=== PATIENT | female | born 1965 | race Caucasian/White ===

== ENCOUNTER 2024-07-07 17:34 | Inpatient (IN) | payer OTHER, SELFPAY ==
[2024-07-07] VITALS (20 sets, daily range): BP systolic 40–127; BP diastolic 48–82; BMI 19.9
[2024-07-07] MEDS: NSS 1000 IV ×2 (11:28→17:44)
[2024-07-07] MEDS: TORADOL 15 MG IV (11:28)
[2024-07-07 11:34] LABS: % Basophils 0.3 % (0-2); % Immature Granulocytes 0.5 % (0-0.5); % Lymphocytes 6.3 % (20.5-51.1); % Monocytes 10.1 % (1.7-9.3); % Neutrophils 82.8 % (42.2-75.2); Absolute Basophils 0.1 10^3/uL (0-0.2); Absolute Immature Granulocytes 0.1 10^3/uL (0-0.05); Absolute Lymphocytes 1.1 10^3/uL (1.2-3.4); Absolute Monocytes 1.8 10^3/uL (0.1-0.6); Absolute Neutrophils 14.7 10^3/uL (1.4-6.5); Hemoglobin 12.5 g/dL (12.0-16.0); Mean Corp Hgb Conc. 35.7 g/dL (33.0-37.0); Mean Corpuscular Hgb 31.2 pg (27.0-31.0); Mean Corpuscular Volume 87.3 fL (81.0-99.0); Mean Platelet Volume 9.9 fL (7.4-10.4); Nucleated Red Blood Cells % 0 %; Platelet Count 173 10^3/uL (130-400); Red Blood Cell Count 4.01 10^6/uL (4.20-5.40); Red Cell Dist. Width 12.8 % (11.5-14.5); White Blood Cell Count 17.7 10^3/uL (4.8-10.8)
[2024-07-07 11:52] LABS: ALT (SGPT) 16 U/L (0-35); AST (SGOT) 18 U/L (14-36); Albumin 4.1 g/dl (3.5-5.0); Alkaline Phosphatase 68 U/L (38-126); Blood Urea Nitrogen 8 mg/dl (7-17); Calcium 9.4 mg/dl (8.4-10.2); Carbon Dioxide 24 mmol/L (22-30); Chloride 102 mmol/L (98-107); Estimated Creatinine Clearance 89 ml/min; Glucose 109 mg/dl (70-99); Lipase 58 U/L (23-300); Magnesium 2.2 mg/dl (1.6-2.3); Potassium 3.8 mmol/L (3.5-5.1); Sodium 135 mmol/L (135-145); Total Protein 6.4 g/dl (6.3-8.2); eGFR > 60.00
[2024-07-07] MEDS: OFIRMEV 100 IV (12:59)
[2024-07-07] MEDS: ROCEPHIN 2000 MG IV (14:34)
[2024-07-07] MEDS: FLAGYL 500 MG 100 IV ×2 (14:34→20:55)
--- NOTE | 2024-07-07 14:49 | ED.GENMED ---
History of Present Illness
General
Chief Complaint: Abdominal Symptoms
Time Seen by Provider: 07/07/24 11:00
History of Present Illness
History of Present Illness:
59-year-old female with history of breast cancer status post bilateral mastectomy presents the emergency department for evaluation of severe lower abdominal pain for the past 48 hours. Began with sudden onset of nausea and vomiting, pain is
gradually worsened since that time. No fevers chills or sweats. No prior abdominal surgical history. No lower urinary tract voiding symptoms
Past History
Past History
ED Past Medical History: Cancer (breast)
ED Past Surgical History: None
Social History
Tobacco: Non-smoker
Alcohol: None
Drug: None
Living: with family
Employment: Employed
Family History
Family History: Other (Noncontributory)
Review of Systems
Review of Systems
Allergies reviewed?: Yes
All Other Systems: ROS reviewed and negative except as documented in HPI and ROS
Phy Exam
Physical Exam
Physical Exam:
GEN: Appears ill and uncomfortable
HEENT: Oral mucosa moist, no scleral icterus
Cardiac: Tachycardic, regular
Lung: No respiratory distress, no tachypnea
Abdomen: Marked tenderness to palpation of right lower quadrant with localized peritoneal signs, positive rebound, no rigidity
MSK: No gross deformity or injuries
Skin: Good color, no pallor or jaundice, no rashes
Neuro: AO x3, moves all extremities freely
Psych: Calm, cooperative
Course
Orders/Labs/Results
Orders:
Orders
07/07/24 11:16
CT Abd/Pel (IV only)-DH only Urgent
Comment:
Reason For Exam: RLQ pain, vomiting
0.9% Sodium Chloride 1000 ml [Nss] 1,000 ml IV BOLUS
Ketorolac [Toradol] 15 mg IV NOW STA
07/07/24 11:18
Complete Blood Count/With Diff Urgent
Comprehensive Metabolic Panel Urgent
Lipase Urgent
Magnesium Urgent
07/07/24 12:54
Acetaminophen 1000MG/100Ml [Ofirmev] 1,000 mg in 100 ml IV ONCE
Acetaminophen IV Indication:: ED Narcotic Naive Pt-ONCE
07/07/24 14:25
CefTRIAXone [Rocephin] 2,000 mg IV NOW STA
MetroNIDAZOLE 500 MG/100 ML [Flagyl 500 mg] 100 ml IV NOW
07/07/24 14:32
Sterile Water [Sterile Water For Injection] 20 ml .ROUTE .STK-MED
07/07/24 14:46
Urinalysis Reflex To Culture Urgent
Date Specimen was Collected: 07/07/24
Time Specimen was Collected: 14:43
Urine Microscopic Reflex Cult Urgent
Abnormal Lab Results
07/07/24 07/07/24
11:18 14:46
WBC 17.7 H 10^3/uL
(4.8-10.8)
RBC 4.01 L 10^6/uL
(4.20-5.40)
Hct 35.0 L %
(37.0-47.0)
MCH 31.2 H pg
(27.0-31.0)
Abs Immat Gran (auto) 0.1 H 10^3/uL
(0-0.05)
Absolute Neuts (auto) 14.7 H 10^3/uL
(1.4-6.5)
Absolute Lymphs (auto) 1.1 L 10^3/uL
(1.2-3.4)
Absolute Monos (auto) 1.8 H 10^3/uL
(0.1-0.6)
Neutrophils % 82.8 H %
(42.2-75.2)
Lymphocytes % 6.3 L %
(20.5-51.1)
Monocytes % 10.1 H %
(1.7-9.3)
Glucose 109 H mg/dl
(70-99)
Urine Ketones 3+ A
(Negative)
Ur Occult Blood Reflex 4+ A
(Negative)
Urine RBC 3-6 A /HPF
(0-2)
Urine Bacteria (Reflex) Few A
(Negative)
Urine Albumin (Reflex) 2+ A
(Neg - Trace)
07/07/24 11:18
07/07/24 11:18
Vital Signs
Initial and Last Documented VS:
Initial Vital Signs
Temp Pulse Resp BP Pulse Ox
98.5 F 94 16 122/82 100
07/07/24 09:19 07/07/24 09:19 07/07/24 09:19 07/07/24 09:19 07/07/24 09:19
Last Documented Vital Signs
Temp Pulse Resp BP Pulse Ox
98.5 F 85 16 102/64 96
07/07/24 09:19 07/07/24 14:46 07/07/24 09:19 07/07/24 14:30 07/07/24 14:46
MDM/Problems Addressed
MDM/Problems Addressed:
Imaging reveals findings concerning for early perforation of the appendix. Communicated findings with general surgery who will take the patient to the operating room for intervention today.
*Critical Care Note
Total Time (30-74mins, 75-104mins- exclusive of procedures): 30 minutes
comment:
Critical care time: 30 minutes
Critical care time was exclusive of: Separately billable procedures, treating other patients, and teaching time
Critical care was necessary to treat or prevent imminent or life-threatening deterioration of the following conditions: Acute appendicitis/peritonitis
Critical care time spent personally by me on the following activities:
[x] Review of old charts
[x] Obtaining history from patient or surrogate
[x] Ordering and review of the laboratory studies
[x] Ordering and review of radiographic studies
[x] Ordering and performing treatments and interventions
[x] Patient patient's response to treatment
[x] Development of treatment plan with patient or surrogate
Update Note
Update Note:
1430: Reviewed imaging findings with radiology, Jasmeet connect message sent to general surgery, at this time I am concerned about the patient's peritoneal exam and feel as though she may require urgent operative intervention. Broad-spectrum IV
antibiotics ordered
ED Attending Note
-
Portions of this chart may have been created with voice recognition software.� Occasional wrong word or��sound alike� substitutions may have occurred due to the inherent limitations of voice recognition software.
Discharge Plan
Departure
Patient Disposition: Admit
Date of Disposition: 07/07/24
Time of Disposition: 14:49
Admit to: Med/Surg
Presentation/result/management discussed w/ accepting MD/DO: General Surgery
Discharge Problem:
Acute appendicitis
Prescriptions:
No Action
fexofenadine 180 mg Tablet
90 mg PO DAILY
ibuprofen 200 mg Tablet
400 mg PO DAILYPRN PRN (Reason: mild pain)
zolpidem 5 mg Tablet
5 mg PO HS
magnesium oxide 400 mg magnesium Tablet
800 mg PO HS
Referrals:
Markie Kyle DO [Family Provider] -
Interventions
Interventions:
*Risk Screen - Suicide Last Done: 07/07/24 12:11
*General Assessment Last Done: 07/07/24 11:32
*Neglect/Abuse Screening Last Done: 07/07/24 12:11
*ED- Fall Risk Assessment Last Done: 07/07/24 11:32
*ED COVID-19 Vaccine History Last Done: 07/07/24 11:32
VA-Vnuwxu-Lnfbsfxvna Assessment Last Done: 07/07/24 11:33
Discharge Date and Time
Print Language: MOLDOVAN
[2024-07-07 15:05] LABS: Urine Albumin 2+ (Neg - Trace); Urine Bilirubin Negative (Negative); Urine Character Clear (Clear); Urine Color Yellow; Urine Glucose Negative (Negative); Urine Ketone 3+ (Negative); Urine Leukocyte Negative (Negative); Urine Nitrite Negative (Negative); Urine Occult Blood 4+ (Negative); Urine Urobilinogen Negative (Neg - 1+)
[2024-07-07 15:15] LABS: Urine Bacteria Few (Negative); Urine White Cell 0-2 /HPF (0-5)
--- NOTE | 2024-07-07 15:15 | HPS.HSE ---
Addendum entered and electronically signed by Michael Hahn MD 07/07/24 15:47:
Patient seen and examined with surgical ELECTRICAL [employer]OR. Agree with documented H&P.
HPI: 59-year-old female presenting with acute onset of nausea vomiting abdominal pain for a bit over 48 hours now. No similar episodes previously. Her pain was a bit more generalized initially but now localizing to the right lower quadrant. Worse
with any movement. She is continued with anorexia and nausea. Some dry heaves as well. Small bowel movement today but otherwise bowels have been less than typically since symptoms started. Mild distention/bloating.
PMH: History of breast cancer status post mastectomy. No past abdominal surgical history. Denies any significant active medical history.
AFVSS
NAD AAOx3 but acutely ill-appearing and uncomfortable
ABD: Soft, tenderness palpation with voluntary guarding and rebound in the right lower quadrant
CT imaging with distended appendix periappendiceal inflammatory changes multiple fecaliths throughout the lumen. No well-organized abscess.
Assessment: 59-year-old female with acute appendicitis.
Reviewed with patient history, examination and CT imaging consistent with acute appendicitis. Discussed both operative and nonoperative management options and associated risks/benefits of approaches. Given the presence of multiple obstructing
fecaliths recommended appendectomy. Patient is in agreement to proceed with appendectomy.
Laparoscopic appendectomy reviewed in detail with the patient. Discussed operative technique utilizing diagrams or drawings, alternative management options, benefits and potential risks such as but not limited to bleeding, infectious or wound
healing complications, iatrogenic injury to surrounding viscera. Discussed the typical postoperative recovery pending operative findings.
Any of the patient's concerns or questions were fully addressed and informed consent was obtained.
Plan: OR for laparoscopic appendectomy.
Empiric antibiotic coverage with Rocephin and Flagyl started in emergency department.
Nothing by mouth, IV fluid hydration and supportive care awaiting operative room availability.
SCDs for DVT prophylaxis
Original Note:
Family Physician
-
Family Physician: Markie Kyle
Chief Complaint
-
RLQ pain
History of Present Illness
%9 yo female with a history of breast CA with bilateral mastectomy (2017) and chemo at [facility] (2018) who presents with nausea and vomiting since morning which subsequently developed into generalized pain localizing to the right lower
quadrant. Pain has progressively worsened and she has not been eating and drinking given her GI symptoms. She had a small bm today and noted pain with in her abdomen with this. She denies fevers or chills. On exam, she has lower abdominal tenderness
with significant tenderness to the RLQ with guarding.
Medical History
Past Medical History
Past Medical History: Reports Cancer (breast tx surgically and with chemo [id number])
Past Surgical History: Reports Other (BL mastectomy)
Social History
Tobacco: Non-smoker
Alcohol: None
Family History
Family History: Not pertinent
Allergies / Home Medications
Allergies reflects when Allergies were last updated in [employer].
Home Medications with original date entered in [employer]
Allergy/Medication List:
Patient Allergies
Allergy/AdvReac Type Severity Reaction Status Date / Time
Penicillins Allergy Intermediate Swelling Verified 07/07/24 09:22
�Medication �Instructions �Recorded �Confirmed �Type
fexofenadine 180 mg tablet 90 mg PO DAILY 07/07/24 07/07/24 History
ibuprofen 200 mg tablet 400 mg PO DAILYPRN PRN mild pain 07/07/24 07/07/24 History
magnesium oxide 800 mg PO HS 07/07/24 07/07/24 History
zolpidem 5 mg tablet 5 mg PO HS 07/07/24 07/07/24 History
Review of Systems
-
History Source: Patient
A 12 point ROS was completed and negative except as noted: Yes
Physical Exam
Vital Signs
Vital Signs
Temp Pulse Resp BP Pulse Ox
98.5 F 85 16 102/64 96
07/07/24 09:19 07/07/24 14:46 07/07/24 09:19 07/07/24 14:30 07/07/24 14:46
Physical Exam
General: Well Developed and Well Nourished
HEENT: Moist mucous membranes
Respiratory: Non Labored Respirations
GI: Soft, Non Distended and Tender (rlq)
Skin: Warm and Dry
Neuro: Awake, Alert and AO x 3
Laboratory Results
-
07/07/24 11:18
07/07/24 11:18
Laboratory Results
Total Bilirubin 1.0 mg/dl (0.2-1.3) 07/07/24 11:18
AST 18 U/L (14-36) 07/07/24 11:18
ALT 16 U/L (0-35) 07/07/24 11:18
Alkaline Phosphatase 68 U/L (38-126) 07/07/24 11:18
Lipase 58 U/L (23-300) 07/07/24 11:18
Data Reviewed
-
CT Scan: Image Personally Visualized and interpreted, Report Reviewed by me, Discussed with Physician and Discussed with Patient
Lab Data: Labs Reviewed by me, Discussed with Physician and Discussed with Patient
Old Records: Reviewed
Impression/Plan
-
IMPRESSION:
59 yo female with a history of breast ca who presents with n/v/abdominal pain over the past 2-3 days with pain localizing to the RLQ. CT imaging consistent with acute appendicitis with appendicolith noted, ?perforation. Afebrile with stable vital
signs, BP low normal. Significant leukocytosis with WBC of 17.2.
PLAN:
Keep NPO for laparoscopic appendectomy
IV abx initiated in the ED, will continue
Analgesics/antiemetics. Reports n/v with narcotics will avoid as able.
IVF while NPO
SCDs for VTE ppx
--- NOTE | 2024-07-07 15:47 | W.SUR.PREOP ---
Pre-Operative Surgical Note
-
I have examined this patient prior to the performance of the scheduled procedure.
The patient's condition is unchanged from the time of the current History and
Physical and the patient is able to undergo the scheduled procedure.
--- NOTE | 2024-07-07 17:12 | W.IMMPOSTOP ---
Addendum entered and electronically signed by Michael Hahn MD 07/07/24 17:23:
#[id number]
Original Note:
Surgical Immed Post Op Note
-
Primary Surgeon: Michael Hahn MD
Assisting Surgeon: Tali Vincent NP, NURSE RECEPTIONIST-s
Pre-op Diagnosis: Acute appendicitis
Post-op Diagnosis: Gangrenous, perforated acute appendicitis with localized peritonitis/abscess/purulence
Procedure Performed: Laparoscopic appendectomy
Anesthesia Type: GETA +0.25% Marcaine
Specimen / Cultures: Abscess fluid
Estimated Blood Loss: 6 mL
Complications: None immediate
Operative Findings: Gangrenous appendicitis with contained perforation and abscess walled off between terminal ileum peritoneum and fallopian tube. Base of appendix and cecum clean. Mesoappendix mobilized and divided with harmonic. Appendix
divided flush with cecum utilizing Endo CRISTOFER purple 45 mm stapler. Purulent fluid in pelvis, abscess cavity fibrin all locally cleared and irrigated to completely clear return.
Drains: 19 Jd from left lower quadrant 5 mm trocar site and positioned into the deep pelvis and then adjacent to the lateral aspect of the terminal ileum and cecum.
Plan: Clear liquids initially postop with IV fluid hydration, analgesics as needed and supportive care
Continue Rocephin and Flagyl awaiting operative cultures
Maintain PRETTY but anticipate removal prior to discharge
Monitor for ileus development
Patient's daughter updated postoperatively in the surgical waiting area
[2024-07-07] MEDS: ZOFRAN 4 MG IV ×2 (17:29→20:52)
[2024-07-07] MEDS: TORADOL 10 MG IV (17:38)
[2024-07-07] MEDS: COMPAZINE 5 MG IV (17:50)
[2024-07-07] MEDS: TYLENOL 650 MG PO (19:30)
[2024-07-07] MEDS: DILAUDID 0.25 MG IV (20:53)
[2024-07-07] MEDS: MAGNESIUM OXIDE 500 MG PO (20:55)
[2024-07-08] VITALS (8 sets, daily range): BP systolic 80–101; BP diastolic 43–62
[2024-07-08] MEDS: COMPAZINE 10 MG IV ×2 (03:40→15:36)
[2024-07-08] MEDS: NSS 1000 IV ×2 (03:42→16:37)
[2024-07-08] MEDS: DILAUDID 0.25 MG IV ×2 (03:43→11:49)
[2024-07-08] MEDS: FLAGYL 500 MG 100 IV ×3 (06:03→22:15)
[2024-07-08] MEDS: TORADOL 10 MG IV ×2 (09:04→17:59)
--- NOTE | 2024-07-08 11:34 | CM ---
Patient seen at bedside
IA completed
Lives in a 2 story home, 1 step to enter, flight to bedroom/bath
PLOF: Independent, no assistive device
Denies DME
Has had [facility] in past, denies rehab
PCP: Dr. Javed
Pharmacy: [facility], [place]
PLAN: Home, anticipate no needs
--- NOTE | 2024-07-08 11:37 | W.PN.GS2 ---
Today's Communication / Plan
-
`
Assessment / Plan
-
Assessment: 59-year-old female POD #1 status post laparoscopic appendectomy
Gangrenous, perforated acute appendicitis with contained abscess and localized peritonitis
AF VSS (low BP at baseline)
Overall doing well postop awaiting return of GI function
Abscess cultures/Gram stain pending
Plan: Multimodal pain control options
Encourage up out of bed to chair, ambulation postoperatively
Hold on clear liquid diet until postoperative nausea subsiding and signs of returning GI function
Continue IV fluid hydration
Rocephin/Flagyl -operative cultures and Gram stain pending
Continue PRETTY but anticipate removal prior to discharge home
Check CBC and BMP tomorrow a.m.
Lovenox for VTE prophylaxis
Subjective Data
-
Date of Service: July 08, 2024
Patient is seen and examined.
Some incisional discomfort and gas cramps. Some right lower quadrant pain, not to the severity of preop
Objective Data
-
Intake and Output
07/07/24 07/08/24 07/09/24
05:59 06:59 06:59
Intake Total
Output Total
Balance
Intake:
IV fluids (Total)
normosol
nss
Output:
Drain Output (Total)
Left Lower Abdomen Dickson-
Swartz
Other:
Number of approximated LARGE
amounts of urine
Vital Signs
Temp Pulse Resp BP Pulse Ox
97.3 F 75 16 83/53 94
07/08/24 11:12 07/08/24 11:12 07/08/24 11:12 07/08/24 11:12 07/08/24 11:12
Lab Results
07/07/24 11:18
07/07/24 11:18
Calcium 9.4 mg/dl (8.4-10.2) 07/07/24 11:18
Magnesium 2.2 mg/dl (1.6-2.3) 07/07/24 11:18
Total Bilirubin 1.0 mg/dl (0.2-1.3) 07/07/24 11:18
AST 18 U/L (14-36) 07/07/24 11:18
ALT 16 U/L (0-35) 07/07/24 11:18
Alkaline Phosphatase 68 U/L (38-126) 07/07/24 11:18
Total Protein 6.4 g/dl (6.3-8.2) 07/07/24 11:18
Albumin 4.1 g/dl (3.5-5.0) 07/07/24 11:18
Physical Exam
-
NAD AAOx3
ABD: Softly distended, tenderness palpation at incision sites with voluntary guarding (stable)
PRETTY with murky serous fluid
[2024-07-08] MEDS: STERILE WATER FOR INJECTION 10 ML IV (13:01)
[2024-07-08] MEDS: ROCEPHIN 1000 MG IV (13:01)
[2024-07-08] MEDS: ZOFRAN 4 MG IV (14:24)
[2024-07-08] MEDS: TYLENOL 650 MG PO ×2 (14:29→22:56)
[2024-07-08] MEDS: NSS 500 IV (15:40)
[2024-07-08] MEDS: DILAUDID 0.5 MG IV (15:44)
[2024-07-08] MEDS: MAGNESIUM OXIDE 500 MG PO (22:20)
[2024-07-09] MEDS: NSS 1000 IV ×2 (03:00→13:56)
[2024-07-09] MEDS: TORADOL 10 MG IV ×3 (03:07→16:26)
[2024-07-09 03:35] VITALS: BP 86/45
[2024-07-09] MEDS: FLAGYL 500 MG 100 IV ×3 (06:30→21:07)
[2024-07-09] MEDS: TYLENOL 650 MG PO (07:06)
[2024-07-09 07:15] VITALS: BP 96/61
--- NOTE | 2024-07-09 08:03 | W.PN.GS2 ---
Today's Communication / Plan
-
-- Clears, possible fulls this afternoon
-- Pain control: Tylenol, Toradol, IV Dilaudid PRN (attempting to minimize narcotics given issues with nausea)
-- Encourage up out of bed to chair, ambulation postoperatively
Assessment / Plan
-
Assessment: 59-year-old female POD #2 status post laparoscopic appendectomy
Gangrenous, perforated acute appendicitis with contained abscess and localized peritonitis
AF VSS (low BP at baseline, stable, no tachycardia, no symptoms)
Repeat labs pending
Overall doing well postop awaiting return of GI function
Abscess cultures/Gram stain pending
Plan:
-- Clears, possible fulls this afternoon
-- Pain control: Tylenol, Toradol, IV Dilaudid PRN (attempting to minimize narcotics given issues with nausea)
-- Encourage up out of bed to chair, ambulation postoperatively
-- Continue IV fluid hydration
-- Abx: Rocephin/Flagyl - operative cultures and Gram stain pending
-- Continue PRETTY but anticipate removal prior to discharge home
-- DVT: Lovenox for VTE prophylaxis
Subjective Data
-
Date of Service: July 09, 2024
Slightly improved from yesterday. Continues to report abdominal pain and discomfort described as twinges and a crampy discomfort that moves throughout her abdomen primarily lower. Denies any nausea, reports of episodes of vomiting (though some
reports from nursing yesterday). Reports passing small amounts of flatus, no BM. No ambulation apart from getting to the commode. She denies any dizziness or lightheadedness. She denies any chest pain or shortness of breath. She does states
that she believes she has been told previously that her blood pressure is on the lower side.
Objective Data
-
Intake and Output
07/08/24 07/09/24 07/10/24
06:59 06:59 06:59
Intake Total 1640 / 1640
Output Total
Balance 1620 / 1620
Intake:
Oral fluids 240 / 240
IV fluids (Total) 1200 / 1200
normosol
nss
IV piggybacks 200 / 200
Output:
Drain Output (Total)
Left Lower Abdomen Dickson-
Swartz
Other:
Number of approximated MODERATE 1
amounts of urine
Number of approximated LARGE
amounts of urine
Vital Signs
Temp Pulse Resp BP Pulse Ox
97.7 F 65 16 96/61 97
07/09/24 07:15 07/09/24 07:15 07/09/24 07:15 07/09/24 07:15 07/09/24 07:15
Calcium 9.4 mg/dl (8.4-10.2) 07/07/24 11:18
Magnesium 2.2 mg/dl (1.6-2.3) 07/07/24 11:18
Total Bilirubin 1.0 mg/dl (0.2-1.3) 07/07/24 11:18
AST 18 U/L (14-36) 07/07/24 11:18
ALT 16 U/L (0-35) 07/07/24 11:18
Alkaline Phosphatase 68 U/L (38-126) 07/07/24 11:18
Total Protein 6.4 g/dl (6.3-8.2) 07/07/24 11:18
Albumin 4.1 g/dl (3.5-5.0) 07/07/24 11:18
Physical Exam
-
Gen: NAD
Abd: soft, mild/moderate tenderness, minimal distension, incisions c/d/i - no erythema, ecchymosis or drainage, PRETTY seropurulent
Patient has a lopez catheter: No
Patient has a central line: No
[2024-07-09 08:43] LABS: Hematocrit 27.6 % (37.0-47.0); Hemoglobin 9.7 g/dL (12.0-16.0); Mean Corp Hgb Conc. 35.1 g/dL (33.0-37.0); Mean Corpuscular Hgb 31.8 pg (27.0-31.0); Mean Corpuscular Volume 90.5 fL (81.0-99.0); Mean Platelet Volume 11.1 fL (7.4-10.4); Platelet Count 167 10^3/uL (130-400); Red Blood Cell Count 3.05 10^6/uL (4.20-5.40); Red Cell Dist. Width 13.2 % (11.5-14.5); White Blood Cell Count 10.8 10^3/uL (4.8-10.8)
[2024-07-09 08:55] LABS: Blood Urea Nitrogen 11 mg/dl (7-17); Calcium 8.3 mg/dl (8.4-10.2); Carbon Dioxide 22 mmol/L (22-30); Chloride 112 mmol/L (98-107); Estimated Creatinine Clearance 76 ml/min; Glucose 90 mg/dl (70-99); Potassium 3.5 mmol/L (3.5-5.1); Sodium 140 mmol/L (135-145); eGFR > 60.00
[2024-07-09 11:20] VITALS: BP 107/64
[2024-07-09] MEDS: TYLENOL 1000 MG PO ×2 (12:17→18:17)
[2024-07-09] MEDS: STERILE WATER FOR INJECTION 10 ML IV (13:57)
[2024-07-09 13:58] LABS: Hematocrit 26.9 % (37.0-47.0); Hemoglobin 9.4 g/dL (12.0-16.0)
[2024-07-09] MEDS: ROCEPHIN 1000 MG IV (13:58)
--- NOTE | 2024-07-09 15:28 | CM ---
Chart reviewed
POD #2 laparoscopic appendectomy
Clears today -
Antibiotics
Pain management
Plan - anticipate home no needs
[2024-07-09 15:37] VITALS: BP 92/57
[2024-07-09 18:56] LABS: Hepatitis C Antibody Negative (Negative)
[2024-07-09 20:51] VITALS: BP 129/70
[2024-07-09] MEDS: DILAUDID 0.5 MG IV (21:05)
[2024-07-09] MEDS: MAGNESIUM OXIDE 500 MG PO (21:07)
[2024-07-09] MEDS: ZOFRAN 4 MG IV (21:14)
[2024-07-09] MEDS: COMPAZINE 10 MG IV (23:09)
[2024-07-09 23:52] VITALS: BP 110/68
[2024-07-10] MEDS: FLAGYL 500 MG 100 IV (05:07)
[2024-07-10] MEDS: TYLENOL 1000 MG PO (05:11)
[2024-07-10] MEDS: COMPAZINE 10 MG IV (05:53)
--- NOTE | 2024-07-10 07:15 | W.PN.GS2 ---
Today's Communication / Plan
-
`
Assessment / Plan
-
Assessment: 59-year-old female POD #3 status post laparoscopic appendectomy
Gangrenous, perforated acute appendicitis with contained abscess and localized peritonitis
AVSS (low BP at baseline, stable, no tachycardia, no symptoms)
A.m. CBC to confirm stability of H&H
Postop hemoglobin 9.7 likely reflective of acute blood loss anemia from surgery and dilutional. Patient also likely has some degree of chronic anemia at baseline and was hemoconcentrated on with hemoglobin 12.5. Reviewing old labs her hemoglobin
was in the 11's.
GI function returning but developed nausea/vomiting after consuming gluten and dairy
Abscess cultures -gram-negative rods
Plan:
--Okay for p.o. intake as tolerated but advised to avoid, dairy and other foods that typically does not settle well for her
-- Abx: Rocephin/Flagyl - operative cultures and Gram stain pending
-- Continue PRETTY but anticipate removal prior to discharge home
-- DVT: Lovenox for VTE prophylaxis
Will follow-up with patient in the afternoon and consider discharge if tolerating p.o. intake and symptoms resolving
Subjective Data
-
Date of Service: July 10, 2024
Patient seen and examined.
Was feeling well yesterday, had a omelette for lunch which went down well.
At dinner had some gluten and dairy which did not react well. Developed postprandial abdominal pain, nausea, diarrhea and small amount of emesis
Required narcotics which also exacerbated her nausea
Improving this a.m.
Objective Data
-
Intake and Output
07/09/24 07/10/24 07/11/24
06:59 06:59 06:59
Intake Total 1640 / 1640 840 / 840
Output Total 20 / 20 180 / 180
Balance 1620 / 1620 660 / 660
Intake:
Oral fluids 240 / 240 240 / 240
IV fluids (Total) 1200 / 1200 400 / 400
IV piggybacks 200 / 200 200 / 200
Output:
Drain Output (Total) 20 180 / 180
Left Lower Abdomen Dickson- 180 / 180
Swartz
Other:
Number of approximated MODERATE 1 4
amounts of urine
Vital Signs
Temp Pulse Resp BP Pulse Ox
97.8 F 67 16 110/68 96
07/09/24 23:52 07/09/24 23:52 07/09/24 23:52 07/09/24 23:52 07/09/24 23:52
Lab Results
07/09/24 07:49
Calcium 8.3 mg/dl (8.4-10.2) L 07/09/24 07:49
Magnesium 2.2 mg/dl (1.6-2.3) 07/07/24 11:18
Total Bilirubin 1.0 mg/dl (0.2-1.3) 07/07/24 11:18
AST 18 U/L (14-36) 07/07/24 11:18
ALT 16 U/L (0-35) 07/07/24 11:18
Alkaline Phosphatase 68 U/L (38-126) 07/07/24 11:18
Total Protein 6.4 g/dl (6.3-8.2) 07/07/24 11:18
Albumin 4.1 g/dl (3.5-5.0) 07/07/24 11:18
Physical Exam
-
NAD AAOx3 was sleeping but awoke easily
ABD: Soft, protuberant but not tensely distended. Mild tenderness palpation incision sites and right lower quadrant.
Incisions with glue dressings
PRETTY with clearing serous fluid, not sanguinous not purulent
[2024-07-10 07:38] VITALS: BP 121/64
[2024-07-10] MEDS: ZOFRAN 4 MG IV (08:12)
[2024-07-10 10:04] LABS: Hematocrit 28.2 % (37.0-47.0); Hemoglobin 9.9 g/dL (12.0-16.0); Mean Corp Hgb Conc. 35.1 g/dL (33.0-37.0); Mean Corpuscular Hgb 31.3 pg (27.0-31.0); Mean Corpuscular Volume 89.2 fL (81.0-99.0); Mean Platelet Volume 10.1 fL (7.4-10.4); Platelet Count 156 10^3/uL (130-400); Red Blood Cell Count 3.16 10^6/uL (4.20-5.40); Red Cell Dist. Width 13.1 % (11.5-14.5); White Blood Cell Count 7.3 10^3/uL (4.8-10.8)
--- NOTE | 2024-07-10 10:17 | CM ---
Reviewed the chart notes and spoke with the patient and her daughter at the bedside. Patient's daughter will provide transportation home. CM continues to be available to patient/family and is monitoring medical plan for needs at discharge.
Plan: Discharge to home when medically stable. No needs identified at this time.
--- NOTE | 2024-07-10 12:37 | W.PN.SURGUPD ---
Surgical Update
Surgical Update
Patient seen in follow-up.
Feeling better. Tolerating p.o. intake since avoiding dairy/gluten.
Pain controlled without narcotics.
PRETTY light serous fluid -removed.
Stable for discharge home
Cultures and sensitivities reviewed -Pseudomonas and E. coli
Discharge on Levaquin and Flagyl for total 1 week postop antibiotic course
--- NOTE | 2024-07-10 12:38 | W.DS.TRANS ---
DC Summary - [employer]eder
-
Discharge Instructions:
Discharge Diagnosis/Procedures Perforated appendicitis with abscess.
Laparoscopic appendectomy
Diet As tolerated,Regular
Additional Diets Smaller meals until postoperative abdominal
bloating distention or mild nausea subsides.
Activity No strenuous activity
Additional Activity Do not lift over 15lbs for the next 2-3 weeks
Driving Restrictions Wait until off narcotics/comfortable twisting
Bathing Restrictions OK to Shower
Wound Care Allow the glue to flake off your incisions over
the next 2-3 weeks, beneath the glue are
dissolving sutures. Remove gauze dressing at
old drain site 24 hours after discharge. Cover
with dry gauze or Band-Aid daily until dry scab.
Instructions:
Stand-Alone Forms:
Changes to Home Medications: No
Discharge Medications:
DC Medications w/original date entered in [employer]
fexofenadine 180 mg tablet 90 mg PO DAILY 07/07/24
ibuprofen 200 mg tablet 400 mg PO DAILYPRN PRN mild pain 07/07/24
magnesium oxide 800 mg PO HS 07/07/24
zolpidem 5 mg tablet 5 mg PO HS 07/07/24
acetaminophen 500 mg tablet (Tylenol Extra Strength) 1,000 mg (2 x 500 mg) PO Q6HPRN PRN mild pain #1 tab 07/10/24
levofloxacin 500 mg tablet 500 mg PO DAILY #5 tabs 07/10/24
metronidazole 500 mg tablet 500 mg PO BID #10 tabs 07/10/24
ondansetron 4 mg disintegrating tablet 4 mg PO Q8HPRN PRN nausea/vomiting #10 tabs 07/10/24
tramadol 50 mg tablet 25 - 50 mg (0.5 - 1 x 50 mg) PO Q6HPRN PRN severe pain/breakthrough pain #7 tabs 07/10/24
Home Medication Changes
Pending Results: No
[2024-07-10 13:00] VITALS: BP 110/66
== END 2024-07-10 13:06 | disposition home or self-care (01) | DRG 398 ==
LOC: 2 SOUTH 17:34
PROVIDERS: Physician Assistant; Registered Nurse; ADMITTING PHYSICIAN Surgery; EMERGENCY PHYSICIAN Emergency Medicine; FAMILY PHYSICIAN Family Medicine
PROC: 0DTJ4ZZ Resection of Appendix, Percutaneous Endoscopic Approach (ICD-10-PCS; 2024-07-07)
DX: K35.33 Acute appendicitis with perforation, localized peritonitis, and gangrene, with abscess (principal); D62 Acute posthemorrhagic anemia; B96.20 Unspecified Escherichia coli [E. coli] as the cause of diseases classified elsewhere; K38.1 Appendicular concretions; Z85.3 Personal history of malignant neoplasm of breast
CPT/HCPCS: 88304; 74177; 80048; 80053; 81003; 81015; 83690; 83735; 85014; 85018; 85025; 85027; 86803; 87070; 87075; 87077; 87205; 96361; 96365; 96375; 99291; Q9967

== ENCOUNTER 2024-07-16 15:29 | Inpatient (IN) | payer OTHER, SELFPAY ==
[2024-07-14] VITALS (11 sets, daily range): BP systolic 111–145; BP diastolic 64–80; BMI 19.9
--- NOTE | 2024-07-14 10:01 | ED.GENMED ---
History of Present Illness
General
Chief Complaint: Post Operative Problem(s)
Source: patient
Exam Limitations: none
Time Seen by Provider: 07/14/24 09:43
Nursing documentation reviewed up to this point in time: agreed with
History of Present Illness
History of Present Illness:
pt is a 59 y/o F
remote breast ca
s/p lap appe on 07/07 dr. nelson, perforated appendicitis, PRETTY drain and IV abx, d/c on 07/10 after PRETTY drained pulled on oral flagyl and levaquin
pt says she was feeling ok for 2 days but yesterday started having increasing abd pain, upper as a burning sensation with pain in her back as well as stabbing RLQ pains
she last took tylenol, mtorin and zofran at 730 am and says it was the only way she would be able to get here becuase movement is very painful
she has been able to pass gas, ate a little bit yesterday but after a few bites felt uncomforable so she stopped
has had some watery stools, non bloody, not foul smelling
she didn't take abx last nigth or today because she wasn't feelin well enough
subjective chills/sweats though no temp taken
called transportation lead surgeon last night who recommended she come for ct scan
pt vomited yesterday, not today
Past History
Past History
ED Past Medical History: Cancer (breast)
ED Past Surgical History: None
Social History
Tobacco: Non-smoker
Alcohol: None
Drug: None
Living: with family
Employment: Employed
Family History
Family History: Other (Noncontributory)
Review of Systems
Review of Systems
Allergies reviewed?: Yes
All Other Systems: Not applicable
Phy Exam
Physical Exam
Physical Exam:
GENERAL: Alert pale, comfortable when still
EYE: pupils equal and reactive
NECK: Supple
ENT: o/p clr, mmm.
CARDIAC: Regular rate and rhythm .
LUNGS: Clear breath sounds bilaterally, no acute respiratory distress, no wheezes/rales/rhonchi
ABDOMEN: Soft, incision sites appear intact, there is a small open hole where the PRETTY drain was in the left lower quadrant that is not draining and there is no surrounding cellulitis, patient has active bowel sounds, no distention, most tenderness is
right lower quadrant and she has involuntary guarding.
NEUROLOGICAL: Alert and oriented, no focal neuro deficits
SKIN: Warm and dry, skin intact.
MUSCULOSKELETAL: No edema, well perfused. neg nai's sign
PSYCH: Normal and appropriate interaction.
Course
Orders/Labs/Results
Orders:
Orders
07/14/24 09:57
CT Abd/Pel (IV only)-[facility] only Urgent
Comment:
Reason For Exam: 7 days post appe/abscess, severe pain, fever
07/14/24 09:58
0.9% Sodium Chloride 1000 ml [Nss] 1,000 ml IV BOLUS
Ketorolac [Toradol] 15 mg IV NOW STA
07/14/24 Lunch
Clear Liquid
07/14/24 10:03
Complete Blood Count/With Diff Urgent
Comprehensive Metabolic Panel Urgent
Lactic Acid Urgent
Lipase Urgent
Blood Culture Q30M
DENISA Source: Blood/Venous
Specimen Description:
07/14/24 10:04
Famotidine [Pepcid] 20 mg IV NOW STA
07/14/24 10:30
Blood Culture Q30M
DENISA Source: Blood/Venous
Specimen Description:
07/14/24 11:11
Urinalysis Reflex To Culture Urgent
Date Specimen was Collected: 07/14/24
Time Specimen was Collected: 11:10
Urine Microscopic Reflex Cult Urgent
07/14/24 12:57
Consult Surgery [SURGICAL CONSULT] Urgent
Consulting Provider: Rios Solis
Was physician already notified: Yes
07/14/24 14:14
EKG [Electrocardiogram (*1)] Routine
Reason for Study: Abdominal Pain
CXR2 [CR Chest - 2 Views ] Routine
Comment:
Reason For Exam: sob
US Abdomen Limited Routine
Comment:
Reason For Exam: epigastric pain, eval gallbladder
07/14/24 14:16
Admit Patient As Directed
Co-Sign Provider:
Level of Care: Observation services
Assign to:: Medical/Surgical
Physician / Group: General surgery
Diagnosis: abdominal pain
Code Status As Directed
Resuscitation Status: Full Code
HYDROmorphone [Dilaudid] 0.5 mg IV Q3HPRN PRN
LevoFLOXacin 500 MG/100 ML [Levaquin] 500 mg in 100 ml IV NOW
Ondansetron Injectable [Zofran] 4 mg IV Q6HPRN PRN
Prochlorperazine [Compazine] 10 mg IV Q6HPRN PRN
Activity As Directed
Activity Level: Out of Bed-Early Mobility
Intake/ Output As Directed
Frequency: Per unit guidelines
Vital Signs As Directed
Frequency: Per unit guidelines
PRN Pain Medication Management As Directed
May give lesser potent ordered pain med per pt: Yes
preference::
Protocol:: Medication orders for pain may be administered in a
manner that supports deferring to patient preference
when the pt is:
- Requesting an ordered lesser potent pain medication.
Least to most potent pain medications are defined
as: acetaminophen < NSAID < tramadol < opioids
(morphine, oxycodone, hydromorphone).
- Requesting a lesser dose of the same medication IF
ORDERED.
- Requesting a less intrusive route of administration
if both routes are prescribed by the provider (PO <
IV).
DX Deep Vein Thrombosis Video Routine
07/14/24 14:17
Rx Incentive Spirometry [RESP] Routine
Frequency: q1h while awake
# of times per hour: 10
07/14/24 14:30
0.9% Sodium Chloride 1000 ml [Nss] 1,000 ml IV 100 mls/hr
07/14/24 15:00
Ketorolac [Toradol] 10 mg IV Q6H
07/14/24 16:00
Acetaminophen [Tylenol] 650 mg PO Q4HWA
MetroNIDAZOLE 500 MG/100 ML [Flagyl 500 mg] 100 ml IV Q12H
07/14/24 18:00
Enoxaparin Sodium [Lovenox] 40 mg SC QPM
07/14/24 20:00
Famotidine [Pepcid] 20 mg PO BID
07/15/24 06:00
Complete Blood Count/No Diff IN AM
Comprehensive Metabolic Panel IN AM
07/15/24 16:00
LevoFLOXacin 500 MG/100 ML [Levaquin] 500 mg in 100 ml IV Q24H
Abnormal Lab Results
07/14/24 07/14/24
10:03 11:11
RBC 3.77 L 10^6/uL
(4.20-5.40)
Hgb 11.7 L g/dL
(12.0-16.0)
Hct 32.8 L %
(37.0-47.0)
Abs Immat Gran (auto) 0.2 H 10^3/uL
(0-0.05)
Absolute Monos (auto) 0.9 H 10^3/uL
(0.1-0.6)
Immature Gran % 3.3 H %
(0-0.5)
Monocytes % 12.3 H %
(1.7-9.3)
BUN 5 L mg/dl
(7-17)
Glucose 104 H mg/dl
(70-99)
ALT 44 H U/L
(0-35)
Urine Ketones 2+ A
(Negative)
Ur Occult Blood Reflex 1+ A
(Negative)
Urine RBC 3-6 A /HPF
(0-2)
07/14/24 10:03
07/14/24 10:03
Vital Signs
Initial and Last Documented VS:
Initial Vital Signs
Temp Pulse Resp BP Pulse Ox
36.4 C 74 16 145/80 98
07/14/24 09:20 07/14/24 09:20 07/14/24 09:20 07/14/24 09:20 07/14/24 09:20
Last Documented Vital Signs
Temp Pulse Resp BP Pulse Ox
36.4 C 74 16 111/68 96
07/14/24 09:20 07/14/24 09:20 07/14/24 09:20 07/14/24 13:00 07/14/24 13:15
MDM/Problems Addressed
Differential Diagnosis Includes:
abscess, bowle obstruction, ileus,
MDM/Problems Addressed:
59 yo F
post op day 7 from [facility] appe perforated appendicitis, had PRETTY drain, removed on 07/10
here with worse pain the past 2 ays, 1 episode vomiting and difficulty walking around
no new fever but felt chills
temp here normal
voluntary guarding on exam but pt does nt appear uncomfortable
no distension
incisions are closed and well appearing
bowel sounds active
wbc reassuring, lactate neg
ct shows no acute findins
d/w surgery
theydid assess pt at bedside
recommended obs admission; will order cxr, ekg and US abdomen to evaluate for other causes; not suspected to ahve post op complication
difficult to control her pain due to intolerance to opiates
*Critical Care Note
Total Time (30-74mins, 75-104mins- exclusive of procedures): Not Applicable
ED Attending Note
-
Portions of this chart may have been created with voice recognition software.� Occasional wrong word or��sound alike� substitutions may have occurred due to the inherent limitations of voice recognition software.
Discharge Plan
Departure
Patient Disposition: Admit
Date of Disposition: 07/14/24
Time of Disposition: 14:17
Admit to: Med/Surg
Admit to doctor: dr. solis
Presentation/result/management discussed w/ accepting /DO: irma
Condition: Fair
Covid-19: Not Applicable
Discharge Problem:
Abdominal pain
Prescriptions:
No Action
fexofenadine 180 mg Tablet
90 mg PO DAILY
ibuprofen 200 mg Tablet
400 mg PO DAILYPRN PRN (Reason: mild pain)
zolpidem 5 mg Tablet
5 mg PO HS
magnesium oxide 400 mg magnesium Tablet
800 mg PO HS
tramadol 50 mg tablet
25 - 50 mg PO Q6HPRN PRN (Reason: severe pain/breakthrough pain) Qty: 7 0RF
acetaminophen [Tylenol Extra Strength] 500 mg tablet
1,000 mg PO Q6HPRN PRN (Reason: mild pain) Qty: 1 0RF
ondansetron 4 mg tablet,disintegrating
4 mg PO Q8HPRN PRN (Reason: nausea/vomiting) Qty: 10 0RF
levofloxacin 500 mg tablet
500 mg PO DAILY Qty: 5 0RF
metronidazole 500 mg tablet
500 mg PO BID Qty: 10 0RF
Referrals:
Markie Kyle DO [Family Provider] -
Interventions
Interventions:
*Risk Screen - Suicide Last Done: 07/14/24 09:20
*Neglect/Abuse Screening Last Done: 07/14/24 09:20
ED-Skin Assessment Last Done: 07/14/24 13:26
Discharge Date and Time
Print Language: DIVEHI
[2024-07-14] MEDS: TORADOL 15 MG IV (10:26)
[2024-07-14] MEDS: PEPCID 20 MG IV (10:26)
[2024-07-14] MEDS: NSS 1000 IV ×2 (10:27→16:10)
[2024-07-14 10:35] LABS: % Basophils 0.7 % (0-2); % Eosinophils 3.1 % (0-6); % Immature Granulocytes 3.3 % (0-0.5); % Lymphocytes 24.8 % (20.5-51.1); % Monocytes 12.3 % (1.7-9.3); % Neutrophils 55.8 % (42.2-75.2); Absolute Basophils 0.1 10^3/uL (0-0.2); Absolute Eosinophils 0.2 10^3/uL (0-0.7); Absolute Immature Granulocytes 0.2 10^3/uL (0-0.05); Absolute Lymphocytes 1.8 10^3/uL (1.2-3.4); Absolute Monocytes 0.9 10^3/uL (0.1-0.6); Hematocrit 32.8 % (37.0-47.0); Hemoglobin 11.7 g/dL (12.0-16.0); Mean Corp Hgb Conc. 35.7 g/dL (33.0-37.0); Mean Platelet Volume 9.5 fL (7.4-10.4); Nucleated Red Blood Cells % 0 %; Platelet Count 335 10^3/uL (130-400); Red Blood Cell Count 3.77 10^6/uL (4.20-5.40); Red Cell Dist. Width 13.2 % (11.5-14.5); White Blood Cell Count 7.1 10^3/uL (4.8-10.8)
[2024-07-14 10:45] LABS: Lactic Acid 0.7 mmol/L (0.7-2.0)
[2024-07-14 10:46] LABS: ALT (SGPT) 44 U/L (0-35); AST (SGOT) 36 U/L (14-36); Alkaline Phosphatase 80 U/L (38-126); Blood Urea Nitrogen 5 mg/dl (7-17); Calcium 9.6 mg/dl (8.4-10.2); Carbon Dioxide 26 mmol/L (22-30); Chloride 104 mmol/L (98-107); Estimated Creatinine Clearance 89 ml/min; Glucose 104 mg/dl (70-99); Lipase 64 U/L (23-300); Potassium 3.7 mmol/L (3.5-5.1); Sodium 139 mmol/L (135-145); Total Bilirubin 0.5 mg/dl (0.2-1.3); Total Protein 6.5 g/dl (6.3-8.2); eGFR > 60.00
[2024-07-14 11:33] LABS: Urine Albumin Negative (Neg - Trace); Urine Bilirubin Negative (Negative); Urine Character Clear (Clear); Urine Color Yellow; Urine Glucose Negative (Negative); Urine Ketone 2+ (Negative); Urine Leukocyte Negative (Negative); Urine Nitrite Negative (Negative); Urine Occult Blood 1+ (Negative); Urine Urobilinogen Negative (Neg - 1+)
--- NOTE | 2024-07-14 14:22 | HPS.HSE ---
Family Physician
-
Family Physician: Markie Kyle
Chief Complaint
-
abdominal pain
History of Present Illness
Ms Waller is a 59 yo female who was admitted last week (07/07-07/10) with acute appendicitis with laparoscopic appendectomy preformed at that time. The appendix was gangrenous and perforated with localized abscess/peritonitis. Post operatively, she
had delayed return of bowel function as well as side effects of narcotics/anesthesia with nausea and vomiting initially. By post operative day 2, diet was able to be advanced and well tolerated. PRETTY which was left in place perioperatively was removed
prior to discharge and she was sent home on oral antibiotics. She notes that she was initially doing relatively well but she presents today with nausea and poor po intake over the past 2 days. She reports burning upper abdominal discomfort after
eating. She has been passing some loose stools but notes abdominal pain when passing stools and when voiding. She denies hematochezia or hematuria. She has not been taking her oral antibiotics for the last 2 days as she has been nauseated. She notes
that the majority of her discomfort is to the right lower abdomen. She denies fevers or chills. She had one episode of shortness of breath with pain but otherwise denies respiratory symptoms.
Medical History
Past Medical History
Past Medical History: Reports Cancer (breast tx chemo/surgery [id number])
Past Surgical History: Reports Appendectomy (07/07/2024) and Other (BL mastectomy/reconstruction)
Social History
Tobacco: Non-smoker
Alcohol: None
Family History
Family History: Not pertinent
Allergies / Home Medications
Allergies reflects when Allergies were last updated in [employer].
Home Medications with original date entered in [employer]
Allergy/Medication List:
Patient Allergies
Allergy/AdvReac Type Severity Reaction Status Date / Time
Penicillins Allergy Intermediate Swelling Verified 07/14/24 09:20
Opioids - Morphine Analogues AdvReac Nausea / Verified 07/14/24 09:20
Vomiting
�Medication �Instructions �Recorded �Confirmed �Type
fexofenadine 180 mg tablet 90 mg PO DAILY 07/07/24 07/07/24 History
ibuprofen 200 mg tablet 400 mg PO DAILYPRN PRN mild pain 07/07/24 07/07/24 History
magnesium oxide 800 mg PO HS 07/07/24 07/07/24 History
zolpidem 5 mg tablet 5 mg PO HS 07/07/24 07/07/24 History
acetaminophen 500 mg tablet 1,000 mg (2 x 500 mg) PO Q6HPRN 07/10/24 Rx
(Tylenol Extra Strength) PRN mild pain #1 tab
levofloxacin 500 mg tablet 500 mg PO DAILY #5 tabs 07/10/24 Rx
metronidazole 500 mg tablet 500 mg PO BID #10 tabs 07/10/24 Rx
ondansetron 4 mg disintegrating 4 mg PO Q8HPRN PRN nausea/vomiting 07/10/24 Rx
tablet #10 tabs
tramadol 50 mg tablet 25 - 50 mg (0.5 - 1 x 50 mg) PO 07/10/24 Rx
Q6HPRN PRN severe
pain/breakthrough pain #7 tabs
Review of Systems
-
History Source: Patient
A 12 point ROS was completed and negative except as noted: Yes
Physical Exam
Vital Signs
Vital Signs
Temp Pulse Resp BP Pulse Ox
97.5 F 74 16 111/68 96
07/14/24 09:20 07/14/24 09:20 07/14/24 09:20 07/14/24 13:00 07/14/24 13:15
Physical Exam
General: Well Developed and Well Nourished
HEENT: Moist mucous membranes
Respiratory: Non Labored Respirations
GI: Soft, Non Distended, Tender (RLQ) and Other (voluntary guarding to RLQ)
Skin: Other (incisions healing well with intact surgical glue, no erythema)
Neuro: Awake, Alert and AO x 3
Psych: Calm
Laboratory Results
-
07/14/24 10:03
07/14/24 10:03
Laboratory Results
Lactic Acid 0.7 mmol/L (0.7-2.0) 07/14/24 10:03
Total Bilirubin 0.5 mg/dl (0.2-1.3) 07/14/24 10:03
AST 36 U/L (14-36) 07/14/24 10:03
ALT 44 U/L (0-35) H 07/14/24 10:03
Alkaline Phosphatase 80 U/L (38-126) 07/14/24 10:03
Lipase 64 U/L (23-300) 07/14/24 10:03
Data Reviewed
-
CT Scan: Image Personally Visualized and interpreted, Report Reviewed by me, Discussed with Physician, Discussed with Patient and Discussed with Family
Lab Data: Labs Reviewed by me, Discussed with Physician, Discussed with Patient and Discussed with Family
Old Records: Reviewed
Impression/Plan
-
IMPRESSION:
59 yo female who is POD #7 lap appi for gangrenous perforated appendicitis presenting with worsening RLQ pain and persistent nausea with burning upper abdominal discomfort. CT imaging reassuring without evidence of abscess, expected post surgical
changes noted. Limited evaluation of the bowel given lack of PO contrast, but no significant distention is present. She is afebrile with normal vital signs. No leukocytosis. RLQ tenderness on exam. Incisions healing well.
Given poor po intake and ongoing symptoms, will keep for observation and continued work up.
PLAN:
Resume ABX with IV levaquin/flagyl
Pepcid 20mg PO BID
IVF with NSS at 100ml/hr
CXR, EKG and ABD US in continued work up
Clear liquid diet
Analgesics/Antiemetics prn
Lovenox for vte ppx
[2024-07-14] MEDS: LEVAQUIN 100 IV (16:11)
[2024-07-14] MEDS: FLAGYL 500 MG 100 IV (16:12)
[2024-07-14] MEDS: TYLENOL 650 MG PO ×2 (16:17→21:20)
[2024-07-14] MEDS: ZOFRAN 4 MG IV ×2 (16:43→18:38)
[2024-07-14] MEDS: DILAUDID 0.5 MG IV (16:59)
[2024-07-14] MEDS: LOVENOX 40 MG SC (18:37)
[2024-07-14] MEDS: TORADOL 10 MG IV (18:39)
[2024-07-14] MEDS: PEPCID 20 MG PO (21:20)
--- NOTE | 2024-07-14 21:31 | PTCARENOTE ---
20:50 pt rec'vd from ER, daughter at the bedside. Pt with IVF infusing, ambulated from stretcher to bed, c/o abd pain 2. Upon assessment pt she had loose stools with dark possible blood this morning however she did not tell ER , INTAKE MANAGER made aware as
pt is due Toradol, NO/ hold Toradol, heparin and heme test.
--- NOTE | 2024-07-14 21:44 | PTCARENOTE ---
2100 pt has hx of breast CA but she expressed she had no lymph nodes removed and removed her limb alert bracelet, pt was educated and FYI wrapper sizer made aware
[2024-07-15 00:23] VITALS: BP 118/66
--- NOTE | 2024-07-15 00:32 | W.PN.UPDATE ---
Update Note
Progress Note Update
~ 2030 RN TT that patient reported she had two loose, dark stools with possible blood in the morning before she arrived to the ER but did not tell ER staff. Toradol and Lovenox put on hold. Hematest ordered.
~ 2240 RN attempted to collect specimen to test, patient discarded hat and flushed specimen.
~ Called to patients room, patient requesting Toradol. RN explained to patient reason medication on hold. Patient now states that her bowel movement was dark green and had no blood. Restarted Toradol, Lovenox and ordered Lidocaine patches for back
pain.
[2024-07-15] MEDS: TORADOL 10 MG IV ×2 (00:43→06:11)
[2024-07-15] MEDS: TYLENOL 650 MG PO ×2 (00:47→04:17)
[2024-07-15] MEDS: LIDOCAINE 4% PATCH 2 PATCH TOPICAL (01:02)
[2024-07-15] MEDS: NSS 1000 IV ×2 (02:55→14:26)
[2024-07-15] MEDS: FLAGYL 500 MG 100 IV ×2 (04:17→17:06)
--- NOTE | 2024-07-15 07:14 | PTCARENOTE ---
pt heme test positive this morning, reported to on coming shift. pt educated regarding her refusing lab draw .
[2024-07-15 07:30] VITALS: BP 112/59
--- NOTE | 2024-07-15 08:49 | W.PN.GS2 ---
Addendum entered and electronically signed by Rios Mcmillan MD 07/15/24 19:14:
I saw and examined the patient.
The CHILDREN'S TUTOR's note was reviewed and I agree with the note.
Nausea and pain has improved this evening. Patient is agreeable to proceeding with EGD tomorrow given how serious the pain had been the last few days.
�N.p.o. at midnight; after EGD tomorrow, p.o. challenge and hopefully discharge
�Continue antibiotics; no indication at this point to extend original course so would stop after today
�Continue PPI
Original Note:
Today's Communication / Plan
-
GI consult
Hold NSAIDs and start PPI
Assessment / Plan
-
59 yo female with h/o breast CA who is POD #8 lap appi presenting with ongoing nausea, vomiting and upper abdominal burning discomfort, RLQ pain present but improving
New history provided since admission, patient reported black stools at home and prior history of H. Pylori/PUD and notes she had the same burning pain at that time.
Heme + stool noted in setting of recent increase in NSAID use post operatively
Refused AM labs, but now agreeable
Pain into mid back currently
Patient very eager to go home; however, not yet tolerating PO intake and with continued pain. Willing to stay today for continued work up.
US neg for cholecystitis, CXR with small pleural effusions-suspect reactive, EKG wnl
--Continue antiemetics
--Hold NSAIDs, change Tylenol to IV. Poor tolerance of narcotics, avoiding for now. Was previously on neurontin, would like to try again.
--Start IV PPI
--GI consult placed
--IVF given poor po intake
--Continue clears for now, not taking in much
--Hold lovenox, SCDS for vte ppx
Subjective Data
-
Date of Service: July 15, 2024
Patient seen and examined at bedside. Event overnight noted. She reports that burning pain in upper abdomen radiating into her back just after eating. black stools at home, did cough up a little blood stained mucous this am. nausea relatively
constant.
Objective Data
-
Intake and Output
07/14/24 07/15/24 07/16/24
06:59 06:59 06:59
Intake Total 1240 / 1240 720 / 720
Balance 1240 / 1240 720 / 720
Intake:
Oral fluids 240 / 240 720 / 720
IV fluids (Total) 1000 / 1000
Other:
Number of approximated MODERATE 3 3
amounts of urine
Vital Signs
Temp Pulse Resp BP Pulse Ox
97.9 F 73 16 112/59 97
07/15/24 07:30 07/15/24 07:30 07/15/24 07:30 07/15/24 07:30 07/15/24 07:30
Calcium 9.6 mg/dl (8.4-10.2) 07/14/24 10:03
Total Bilirubin 0.5 mg/dl (0.2-1.3) 07/14/24 10:03
AST 36 U/L (14-36) 07/14/24 10:03
ALT 44 U/L (0-35) H 07/14/24 10:03
Alkaline Phosphatase 80 U/L (38-126) 07/14/24 10:03
Total Protein 6.5 g/dl (6.3-8.2) 07/14/24 10:03
Albumin 4.0 g/dl (3.5-5.0) 07/14/24 10:03
Physical Exam
-
NAD AAOx3
ABD: Soft, ND. Mild tenderness palpation to right lower quadrant.
Incisions with intact glue dressings
[2024-07-15] MEDS: NSS (PRESERVATIVE FREE) 10 ML IV ×2 (09:32→20:12)
[2024-07-15 09:33] LABS: Hematocrit 28.6 % (37.0-47.0); Hemoglobin 10.3 g/dL (12.0-16.0); Mean Corpuscular Hgb 31.4 pg (27.0-31.0); Mean Corpuscular Volume 87.2 fL (81.0-99.0); Mean Platelet Volume 9.7 fL (7.4-10.4); Platelet Count 300 10^3/uL (130-400); Red Blood Cell Count 3.28 10^6/uL (4.20-5.40); Red Cell Dist. Width 13.2 % (11.5-14.5); White Blood Cell Count 6.3 10^3/uL (4.8-10.8)
[2024-07-15] MEDS: PROTONIX IV 40 MG IV ×2 (09:33→20:12)
[2024-07-15] MEDS: TYLENOL PO (09:41)
[2024-07-15 09:49] LABS: ALT (SGPT) 28 U/L (0-35); AST (SGOT) 21 U/L (14-36); Albumin 3.5 g/dl (3.5-5.0); Alkaline Phosphatase 65 U/L (38-126); Blood Urea Nitrogen 3 mg/dl (7-17); Calcium 8.7 mg/dl (8.4-10.2); Carbon Dioxide 20 mmol/L (22-30); Chloride 108 mmol/L (98-107); Estimated Creatinine Clearance 90 ml/min; Glucose 109 mg/dl (70-99); Potassium 3.6 mmol/L (3.5-5.1); Sodium 138 mmol/L (135-145); Total Bilirubin 0.5 mg/dl (0.2-1.3); Total Protein 5.6 g/dl (6.3-8.2); eGFR > 60.00
[2024-07-15] MEDS: OFIRMEV 100 IV ×2 (10:48→18:18)
--- NOTE | 2024-07-15 10:57 | CM ---
Addendum entered by Kellee Mcclain RN 07/15/24 11:02:
Patient is admitted under observational status. The observation letter was provided and explained. The patient had no questions with regards to the letter.
Original Note:
Reviewed the chart notes and spoke with the patient and her daughter at the bedside. Patient recently hospitalized for laparoscopic appendectomy (07/07-07/10) and discharged to home with no needs. The patient and daughter reside in a two story home
with one step to enter. The patient reports no DME or SNF in past, but did have [facility] in the past. The patient confirmed her pharmacy of choice is the [facility]. CM continues to be available to patient/family and is monitoring
medical plan for needs at discharge.
Plan: Discharge to home when medically stable.
--- NOTE | 2024-07-15 11:57 | CON.GI ---
Consultation
-
Date/Time Consultation Requested: 07/15/2024
Date/Time Consultation Performed: 07/15/2024
Performing Provider: Alfredo Sanderson
Reason for Consultation: abdominal pain, possible melena
Medical History
Chief Complaint / HPI
Chief Complaint: abdominal pain, ? melena
History of Present Illness:
59 year old female with h/o breast ca s/o resection/chemo in 2017/2017 and recent appendectomy who p/w nausea, abdominal pain and ? melena. She had been having burning upper abdominal pain for past week since discharge. She has been taking NSAIDs
daily (motrin x 2 daily) after discharge. Reports h/o H. pylori about 10 years ago which was treated. She had 'dark stool' at home, although upon further questioning denies it was tarry black.
Past Medical History
Past Medical History: Other
Past Surgical History: Appendectomy
Social History
Tobacco: Non-Smoker
Alcohol: None
Family History
Family History: Reviewed & Not Pertinent
Allergies / Home Medications
Allergy/AdvReac Type Severity Reaction Status Date / Time
Penicillins Allergy Intermediate Swelling Verified 07/14/24 09:20
Opioids - Morphine Analogues AdvReac Nausea / Verified 07/14/24 09:20
Vomiting
�Medication �Instructions �Recorded
ibuprofen 200 mg tablet 1 mg PO DAILYPRN PRN mild pain 07/07/24
magnesium oxide 400 mg PO HS 07/07/24
acetaminophen 500 mg tablet 1,000 mg (2 x 500 mg) PO Q6HPRN 07/10/24
(Tylenol Extra Strength) PRN mild pain #1 tab
levofloxacin 500 mg tablet 500 mg PO DAILY #5 tabs 07/10/24
metronidazole 500 mg tablet 500 mg PO BID #10 tabs 07/10/24
ondansetron 4 mg disintegrating 4 mg PO Q8HPRN PRN nausea/vomiting 07/10/24
tablet #10 tabs
tramadol 50 mg tablet 25 mg PO Q6HPRN PRN severe 07/14/24
pain/breakthrough pain
Review of Systems
Vital Signs
Temp Pulse Resp BP Pulse Ox
97.9 F 73 16 112/59 97
07/15/24 07:30 07/15/24 07:30 07/15/24 07:30 07/15/24 07:30 07/15/24 07:30
Physical Exam
Exam
General: Well Developed and Well Nourished
HEENT: Normocephalic and Anicteric
Respiratory: Clear
Cardiac: S1/S2
GI: Soft, Non Distended, Normal Bowel Sounds and Tender (mild tenderness in epigastric region)
Results
WBC 6.3 10^3/uL (4.8-10.8) 07/15/24 09:23
Hgb 10.3 g/dL (12.0-16.0) L 07/15/24 09:23
Hct 28.6 % (37.0-47.0) L 07/15/24 09:23
MCV 87.2 fL (81.0-99.0) 07/15/24 09:23
Plt Count 300 10^3/uL (130-400) 07/15/24 09:23
Absolute Neuts (auto) 4.0 10^3/uL (1.4-6.5) 07/14/24 10:03
Sodium 138 mmol/L (135-145) 07/15/24 09:23
Potassium 3.6 mmol/L (3.5-5.1) 07/15/24 09:23
Chloride 108 mmol/L (98-107) H 07/15/24 09:23
Carbon Dioxide 20 mmol/L (22-30) L 07/15/24 09:23
BUN 3 mg/dl (7-17) L 07/15/24 09:23
Creatinine 0.5 mg/dL (0.6-1.0) L 07/15/24 09:23
Calcium 8.7 mg/dl (8.4-10.2) 07/15/24 09:23
Total Bilirubin 0.5 mg/dl (0.2-1.3) 07/15/24 09:23
AST 21 U/L (14-36) 07/15/24 09:23
ALT 28 U/L (0-35) 07/15/24 09:23
Alkaline Phosphatase 65 U/L (38-126) 07/15/24 09:23
Lipase 64 U/L (23-300) 07/14/24 10:03
Diagnostic Image Results:
Prior GI Procedures:
EGD:
Colonoscopy:
Assessment / Plan
-
59 year old female with h/o breast ca s/o resection/chemo in 2016/2017 and recent complicated appendectomy who p/w nausea, abdominal pain and ? melena.
Impression / Rec:
1. Abdominal pain, ? melena - recently had complicated appendectomy (gangrenous/perforated) and was discharged about a week ago. Had been taking NSAIDs (motrin x 2 daily) since discharge. Also reports having H. pylori about 10 years prior s/p
treatment. Suspect NSAID induced PUD. Will plan for EGD tomorrow. PPI IV BID for now.
Total Time Spent with Patient (in minutes): 55
-
-
Thank you for consultation and allowing me to participate in the patient's care. Please call the compensation associate GI physician during the after hours with any questions or concerns.
[2024-07-15 16:30] VITALS: BP 127/73
[2024-07-15] MEDS: LEVAQUIN 150 IV (18:19)
[2024-07-15] MEDS: ZOFRAN 4 MG IV (20:12)
[2024-07-15] MEDS: LIDOCAINE 4% PATCH TOPICAL (22:57)
[2024-07-15 23:30] VITALS: BP 88/58
[2024-07-16] MEDS: OFIRMEV 100 IV ×2 (00:08→05:49)
[2024-07-16] MEDS: FLAGYL 500 MG 100 IV (04:40)
[2024-07-16] MEDS: NSS 1000 IV (04:40)
[2024-07-16 05:45] VITALS: BP 107/54
[2024-07-16] MEDS: ZOFRAN 4 MG IV (05:49)
[2024-07-16 07:03] LABS: % Basophils 0.8 % (0-2); % Eosinophils 6.4 % (0-6); % Immature Granulocytes 2.2 % (0-0.5); % Lymphocytes 31.2 % (20.5-51.1); % Monocytes 10.2 % (1.7-9.3); % Neutrophils 49.2 % (42.2-75.2); Absolute Basophils 0.1 10^3/uL (0-0.2); Absolute Eosinophils 0.4 10^3/uL (0-0.7); Absolute Immature Granulocytes 0.1 10^3/uL (0-0.05); Absolute Monocytes 0.7 10^3/uL (0.1-0.6); Absolute Neutrophils 3.2 10^3/uL (1.4-6.5); Hematocrit 26.5 % (37.0-47.0); Hemoglobin 9.5 g/dL (12.0-16.0); Mean Corp Hgb Conc. 35.8 g/dL (33.0-37.0); Mean Corpuscular Hgb 31.3 pg (27.0-31.0); Mean Corpuscular Volume 87.2 fL (81.0-99.0); Mean Platelet Volume 9.5 fL (7.4-10.4); Nucleated Red Blood Cells % 0 %; Platelet Count 299 10^3/uL (130-400); Red Blood Cell Count 3.04 10^6/uL (4.20-5.40); Red Cell Dist. Width 13.3 % (11.5-14.5); White Blood Cell Count 6.5 10^3/uL (4.8-10.8)
[2024-07-16 07:15] VITALS: BP 111/60
[2024-07-16 07:17] LABS: Blood Urea Nitrogen 3 mg/dl (7-17); Calcium 8.7 mg/dl (8.4-10.2); Carbon Dioxide 23 mmol/L (22-30); Chloride 110 mmol/L (98-107); Estimated Creatinine Clearance 90 ml/min; Glucose 91 mg/dl (70-99); Sodium 138 mmol/L (135-145); eGFR > 60.00
[2024-07-16] MEDS: PROTONIX IV 40 MG IV (08:55)
[2024-07-16] MEDS: NSS (PRESERVATIVE FREE) 10 ML IV (08:56)
--- NOTE | 2024-07-16 12:15 | PTCARENOTE ---
Pt Transferred to the GI for EGD. Pt instructed on what to expect pre and post procedure. Pt verbalized understanding of instructions. Verbal report given to GI RN. VSS, pt afebrile.
[2024-07-16] MEDS: NSS IV (12:21)
[2024-07-16 12:52] VITALS: BP 125/73; BP_SYST 18
[2024-07-16 13:07] VITALS: BP 124/74; BP_SYST 15
[2024-07-16 14:24] VITALS: BP 139/77
[2024-07-16] MEDS: LEVAQUIN IV (15:26)
[2024-07-16] MEDS: FLAGYL 500 MG IV (15:26)
--- NOTE | 2024-07-16 15:30 | W.PN.GS2 ---
Addendum entered and electronically signed by Michael Hahn MD 07/20/24 15:35:
HGB 9.5 which is consistent with her hemoglobin last week postoperatively of 9.9.
Assuming this is reflective of both acute blood loss anemia in light of her recent appendectomy -with typical operative blood loss and dilutional component from IV fluids -no signs of active bleeding during this hospitalization. May have
undiagnosed chronic anemia as well?
Original Note:
Today's Communication / Plan
-
`
Assessment / Plan
-
59 yo female with h/o breast CA who is POD #9 lap appendectomy (perforated/gangrenous appendix) re-admitted with nausea, vomiting and upper abdominal burning discomfort, RLQ pain present but improving
US neg for cholecystitis, CXR with small pleural effusions-suspect reactive, EKG wnl
EGD with GI today -erosions/duodenitis but no active bleeding, no peptic ulcers
Appears stable for DC home
Prescription for pantoprazole provided
Additional prescription for Zofran as well
Utilize acetaminophen for pain control
Outpatient surgical follow-up
Subjective Data
-
Date of Service: July 16, 2024
Patient seen and examined.
Able to tolerate some crackers after EGD today.
Abdominal pain is improving with few days of IV PPI therapy
Still with abdominal discomfort.
Nausea better controlled. No further vomiting.
Still with early satiety
Objective Data
-
Intake and Output
07/15/24 07/16/24 07/17/24
06:59 06:59 06:59
Intake Total 1240 / 1240 3460 / 3460
Balance 1240 / 1240 3460 / 3460
Intake:
Oral fluids 240 / 240 2160 / 2160
IV fluids (Total) 1000 / 1000 1000 / 1000
IV piggybacks 300 / 300
Other:
Number of approximated MODERATE 3 3
amounts of urine
Vital Signs
Temp Pulse Resp BP Pulse Ox
98.4 F 68 16 139/77 97
07/16/24 14:24 07/16/24 14:24 07/16/24 14:24 07/16/24 14:24 07/16/24 14:24
Lab Results
07/16/24 06:44
07/16/24 06:44
Calcium 8.7 mg/dl (8.4-10.2) 07/16/24 06:44
Total Bilirubin 0.5 mg/dl (0.2-1.3) 07/15/24 09:23
AST 21 U/L (14-36) 07/15/24 09:23
ALT 28 U/L (0-35) 07/15/24 09:23
Alkaline Phosphatase 65 U/L (38-126) 07/15/24 09:23
Total Protein 5.6 g/dl (6.3-8.2) L 07/15/24 09:23
Albumin 3.5 g/dl (3.5-5.0) 07/15/24 09:23
Physical Exam
-
NAD AAOx3
--- NOTE | 2024-07-16 15:34 | W.DS.TRANS ---
Addendum entered and electronically signed by ALMA Vaughn 07/19/24 13:04:
dictated #[id number]
Original Note:
DC Summary - [employer] Work[employer]
-
Discharge Instructions:
Discharge Diagnosis/Procedures Postop nausea/vomiting and abdominal pain;
duodenitis
Diet As tolerated
Activity No strenuous activity
Driving Restrictions As prior to admission
Bathing Restrictions OK to Shower
Instructions:
Stand-Alone Forms:
Changes to Home Medications: No
Discharge Medications:
DC Medications w/original date entered in [email or web address]
magnesium oxide 400 mg PO HS 07/07/24
acetaminophen 500 mg tablet (Tylenol Extra Strength) 1,000 mg (2 x 500 mg) PO Q6HPRN PRN mild pain #1 tab 07/10/24
tramadol 50 mg tablet 25 mg PO Q6HPRN PRN severe pain/breakthrough pain 07/14/24
ondansetron 4 mg disintegrating tablet 4 mg PO Q8HPRN PRN nausea/vomiting #10 tabs 07/16/24
pantoprazole 40 mg tablet,delayed release (Protonix) 40 mg PO DAILY #60 tabs 07/16/24
Home Medication Changes
Pending Results: No
--- NOTE | 2024-07-16 16:31 | CM ---
Per chart review, pt discharged and no dc needs noted
--- NOTE | 2024-07-18 10:46 | PN.CDI ---
CDI
- -
CDI:
Physician Documentation Request
Admit Date: 07/16/24 15:29
Dear Doctor Selma,
Patient presented to ED with complains of abdominal pain associated with nausea and vomiting 1 week after appendectomy.
07/15 nursing notes state 'pt heme test positive this morning'
GI consult ?melena
H/H results:
Laboratory Tests
07/14/24 07/15/24 07/16/24
10:03 09:23 06:44
Hgb 11.7 L 10.3 L 9.5 L
Hct 32.8 L 28.6 L 26.5 L
Could you please provide a diagnosis that supports the above lab abnormalities and additional evaluation/ monitoring:
Acute blood loss anemia
Other anemia - please specify
Other
Use of terms such as suspected, likely, concern for, or probable (associated with a specific diagnosis that is being evaluated, monitored, or treated as if it exists) are acceptable and can be coded in the inpatient setting, when documented at the
time of discharge.
Thank you,
Helene Mullins RN, BSN
CDI Specialist
tiger text
Please use your independent medical judgment in providing your response.
== END 2024-07-16 16:00 | disposition home or self-care (01) | DRG 384 ==
LOC: 2 SOUTH 15:29
PROVIDERS: Physician Assistant; Registered Nurse; Surgery; ADMITTING PHYSICIAN Surgery; ATTENDING PHYSICIAN Surgery; CONSULT PHYSICIAN Internal Medicine Gastroenterology; EMERGENCY PHYSICIAN Emergency Medicine; FAMILY PHYSICIAN Family Medicine
PROC: 0DB68ZX Excision of Stomach, Via Natural or Artificial Opening Endoscopic, Diagnostic (ICD-10-PCS; 2024-07-16)
DX: K26.9 Duodenal ulcer, unspecified as acute or chronic, without hemorrhage or perforation (principal); D62 Acute posthemorrhagic anemia; G89.18 Other acute postprocedural pain; M54.9 Dorsalgia, unspecified; R19.5 Other fecal abnormalities; R26.2 Difficulty in walking, not elsewhere classified; Z85.3 Personal history of malignant neoplasm of breast; Z92.21 Personal history of antineoplastic chemotherapy; Z90.49 Acquired absence of other specified parts of digestive tract; Z88.0 Allergy status to penicillin; Z88.5 Allergy status to narcotic agent
CPT/HCPCS: 88305; 71046; 74177; 76705; 80048; 80053; 81003; 81015; 83605; 83690; 85025; 85027; 87040; 88342; 93005; 96361; 96365; 96367; 96375; 99285; Q9967